=== PATIENT | male | born 1960 | race Two or more races ===

== ENCOUNTER 2021-10-02 07:08 | Outpatient (CLI) | payer OTHER | END 2021-10-02 07:24 | disposition home or self-care (01) | LOC: LAB 07:08 → EDBD 07:08 → LAB 07:24 | DX: I27.21 Secondary pulmonary arterial hypertension (principal) ==

== ENCOUNTER 2023-08-30 18:03 | Emergency (ER) | payer OTHER ==
[~2023-08-30] VITALS: Ht 165.1 cm; Wt 99.3 kg
[2023-08-30] MEDS ORDERED: LOSARTAN POTAS100 MG (18:08)
[2023-08-30] MEDS ORDERED: KAPVAY0.1 MG (18:09)
[2023-08-30] MEDS ORDERED: METFORMIN HCL500 MG PO (18:09)
== END 2023-08-30 20:51 | disposition home or self-care (01) ==
LOC: ER 18:04
DX: U07.1 COVID-19 (principal); B34.9 Viral infection, unspecified; R53.81 Other malaise
CPT/HCPCS: 36415; 96372; 99282; J0696

== ENCOUNTER 2025-03-02 19:31 | Emergency (ER) | payer OTHER ==
[~2025-03-02] VITALS: Ht 165.1 cm; Wt 95.3 kg
[~2025-03-02 19:31] MED LIST: KAPVAY0.1 MG; LOSARTAN POTAS100 MG; METFORMIN HCL500 MG PO
[2025-03-02] MEDS ORDERED: OZEMPIC0.25 MG/02 SQ (19:57)
[2025-03-02] MEDS ORDERED: TRAMADOL HCL 50 MG TABLET PO STA ×2 (20:31→22:17)
[2025-03-02] MEDS ORDERED: KETOROLAC TROMETHAMINE 30 MG VIAL IM STA (20:31)
[2025-03-02] MEDS ORDERED: KETOROLAC TROMETHAMINE 30 MG VIAL ONE (21:12)
[2025-03-02 21:42] LABS: BASO % 0.4 % (0.1-1.2); EOS # 0.18 (0.04-0.54); EOS % 1.1 % (0.7-7.0); LYMPH # 1.87 (1.18-3.74); LYMPH % 11.3 % (19.3-53.1); MEAN PLATELET VOLUME 11.00 fl (9.4-12.4); MONO # 1.29 (0.24-0.82); MONO % 7.8 % (4.7-12.5); NEUT # 13.10 (1.56-6.13); NEUT % 79.0 % (34.0-71.1); RED CELL DISTRIBUTION WIDTH 13.2 % (11.6-14.4)
[2025-03-02 22:05] LABS: ALT/SGPT 31.0 U/L (12-78); AST/SGOT 28.0 U/L (15-37); BILIRUBIN TOTAL 0.81 mg/dL (0.3-1.2); BUN CREA RATIO 17.0 (7.0-25.0); CREATININE SERUM 1.29 mg/dL (0.70-1.30); GFR 56.07; GLOBULINA 3.9 G/DL (2.4-3.5); GLUCOSE FASTING 123.0 mg/dL (65-100); OSMOLALITY SERUM 286.0 MOSM/KG (275-295)
== END 2025-03-02 22:41 | disposition home or self-care (01) ==
LOC: ER 19:46
PROVIDERS: General Practice
DX: S29.8XXA Other specified injuries of thorax, initial encounter (principal); S21.90XA Unspecified open wound of unspecified part of thorax, initial encounter; W19.XXXA Unspecified fall, initial encounter; Y93.89 Activity, other specified; Y92.89 Other specified places as the place of occurrence of the external cause; Y99.8 Other external cause status; R07.81 Pleurodynia; J93.9 Pneumothorax, unspecified